=== PATIENT | female | born 1985 | race Caucasian/White ===

== ENCOUNTER 2017-06-08 13:46 | Emergency (ER) | payer MEDICAID ==
--- NOTE | 2017-06-08 14:13 | Emergency Department Record ---
History of Present Illness - General Chief Complaint: Wound, check Stated Complaint: SUTURE CAME OUT OF INCISION Time Seen by Provider: 06/08/17 13:59 Source: Patient Mode of arrival: Ambulatory Limitations: No limitations - History of Present Illness Initial Comments: 31 yo female presents after noting bleeding from a left forearm biopsy sight from her measurer today. No pain or swelling. No new injury. The patient looked down her arm and noted the blood. No pain. Onset/Timin -: Minutes(s) Initial Visit For: Other Returns Today for: Other Symptoms Since Prior Visit: No new symptoms Associated Symptoms: None - Related Data Allergies Allergy/AdvReac Type Severity Reaction Status Date / Time No Known Drug Allergies Allergy Verified 06/08/17 13:57 Travel Screening - Travel/Exposure Within Last 30 Days Have you traveled within the last 30 days?: No - Travel/Exposure Within Last Year Have you traveled outside the [place] in the last year?: No - Additonal Travel Details Have you been exposed to anyone with a communicable illness?: No - Travel Symptoms Symptom Screening: None Review of Systems Constitutional: Denies: Chills, Fever, Malaise, Weakness Eyes: Denies: Eye discharge ENT: Denies: Congestion, Throat pain Respiratory: Denies: Cough, Dyspnea Cardiovascular: Denies: Chest pain, Syncope Endocrine: Denies: Fatigue Gastrointestinal: Denies: Abdominal pain, Diarrhea, Nausea, Vomiting Genitourinary: Denies: Dysuria, Urgency Musculoskeletal: Denies: Arthralgia, Back pain Skin: Reports: Other (Mole removal today). Denies: Bruising, Change in color, Rash Neurological: Denies: Headache Psychiatric: Denies: Anxiety Hematological/Lymphatic: Denies: Blood Clots, Easy bleeding, Easy bruising, Swollen glands Past Medical History - SOCIAL HISTORY Smoking Status: Never smoker Alcohol Use: Rare Drug Use: None - RESPIRATORY Hx Respiratory Disorders: No - CARDIOVASCULAR Hx Cardio Disorders: No - NEURO Hx Neuro Disorders: No - GI Hx GI Disorders: No - Hx Genitourinary Disorders: No - ENDOCRINE Hx Endocrine Disorders: No - MUSCULOSKELETAL Hx Musculoskeletal Disorders: No - PSYCH Hx Psych Problems: No - HEMATOLOGY/ONCOLOGY Hx Hematology/Oncology Disorders: No Family Medical History Any Significant Family History?: No Physical Exam - General General Appearance: Alert, Oriented x3, Cooperative, No acute distress Limitations: No limitations - Head Head exam: Normal inspection - Eye Eye exam: Normal appearance. negative: Conjunctival injection - ENT ENT exam: Normal exam - Neck Neck exam: Normal inspection - Cardiovascular Peripheral Pulses: 2+: Radial (L) - Rectal Rectal exam: Deferred - exam: Deferred - Extremities Extremities exam: Normal inspection, Normal capillary refill, Other (Sutures intact, no swelling, no bleeding, very good wound approximation) - Neurological Neurological exam: Alert, Oriented X3 - Psychiatric Psychiatric exam: Normal affect, Normal mood - Skin Skin exam: Dry, Intact, Normal color, Warm Course Vital Signs 06/08/17 13:47 Temperature 99.1 F Pulse Rate 60 Respiratory 16 Rate Blood Pressure 121/66 Pulse Ox 97 - Reevaluation(s) Reevaluation #1: The wound was examined No active bleeding I gently applied steady pressure and no bleeding occurred The suture line is intact with very good wound approximation. A clean dressing with ANKUR wrap applied She is to remove it at 8pm 06/08/17 14:12 Disposition Disposition: Discharge Clinical Impression: Hematoma Disposition: Home, Self-Care Condition: (1) Good Instructions: Hematoma (ED) Additional Instructions: Leave the ANKUR wrap on until 8pm Return if any swelling, bleeding Remove the ANKUR wrap if its tight, and changes to the feeling in your hand. Forms: Patient Portal Access Time of Disposition: 14:12 Quality - Quality Measures Quality Measures: N/A - Blood Pressure Screening View Details: Yes Blood Pressure Classification: Pre-Hypertensive BP Reading Systolic Measurement: 121 Diastolic Measurement: 66 Screening for High Blood Pressure: < Normal BP, F/U Not Required > [G8783] Normal BP Follow-up Interventions: No follow-up required
== END 2017-06-08 14:21 | disposition home or self-care (01) ==
LOC: ER 13:46
DX: S50.12XA Contusion of left forearm, initial encounter (principal)
CPT/HCPCS: 99282